=== PATIENT | female | born 1975 | race Caucasian/White ===

== ENCOUNTER 2023-07-07 08:13 | Outpatient (AMB) | payer BC, SELFPAY ==
--- NOTE | 2023-07-07 08:14 | MHC.OFFWIV ---
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 vision screening : OD 20/20 OU 20/15 OU 20/15 Patient Tobacco Use Status: Never used Tobacco Allergies No Known Allergies Allergy (Verified 07/07/23 08:16) Do you need a note to return to daycare/school/sports/work: Yes HPI HPI Comments History of Present Illness Details This is a 47-year-old female presenting for evaluation of discomfort in her left lower eyelid that started last night. Patient denies any visual changes, discharge from her left eye, light sensitivity, injury to her left eye or known retained foreign body. Patient has used Tylenol only for discomfort but notes that she has been rubbing her lower left eyelid this morning. Patient denies any systemic complaints including fevers or chills. [facility] Social History Patient Tobacco Use Status: Never used Tobacco Review of Systems Const All systems reviewed & are unremarkable except as noted in HPI and below Reports as per HPI, Denies chills and Denies fever(s) Eyes Denies change in vision, Denies diplopia, Reports irritation, Reports eye pain (discomfort left lower eyelid) and Reports requires corrective lenses ENT Reports no additional complaints Physical Exam Vital Signs: Last Vital Signs Temp 97.8 F 07/07/23 08:15 Pulse 94 07/07/23 08:15 BP 110/72 07/07/23 08:15 Pulse Ox 99 07/07/23 08:15 BMI result Body Mass Index 25.8 Const General: cooperative, healthy appearing, comfortable, no acute distress, alert and other (afebrile) Nutritional Appearance: average body habitus Orientation/consciousness: patient oriented x3 Limitations: no limitations HEENT Head: Yes normal to inspection Ears: hearing grossly normal bilaterally General nose exam: Normal external nose present Face and sinus: Yes normal facial exam Eyes Alignment and Position: alignment normal Periorbital: periorbital findings normal Eyelids: No other (erythema and edema L. lateral lower lid with internal pustule noted, tender) Conjunctivae: conjunctivae normal and other (no discharge noted from left eye, no irritation noted on examination) Sclerae: sclerae normal Pupils: Equal, round and reactive pupils present EOM: EOMs intact bilaterally Direct Ophthalmoscopy: no photophobia Neuro General: patient oriented x3 Cranial nerves: Yes Equal, round and reactive pupils present Assessment & Plan Assessment & Plan (1) Hordeolum eyelid: Code(s): H00.019 - Hordeolum externum unspecified eye, unspecified eyelid Qualifiers: Eyelid: lower Hordeolum type: internum Laterality: left Qualified Code(s): H00.025 - Hordeolum internum left lower eyelid Plan: Patient is instructed to use warm compresses 4-5 times daily and Tylenol as needed for discomfort. Coding Level of Care Code New Pt Level 3 (71870) Diagnoses Hordeolum internum of left lower eyelid H00.025 Eyelid: lower Hordeolum type: internum Laterality: left Time Spent (min) 20
[2023-07-07 08:15] VITALS: BP 110/72; PULSE 94; TEMP 36.6; O2SAT 99; BMI 25.8
== END 2023-07-07 08:59 | disposition home or self-care (01) ==
PROVIDERS: PCP Internal Medicine; Visit Provider Physician Assistant
DX: H00.025 Hordeolum internum left lower eyelid (principal)
CPT/HCPCS: 99203

== ENCOUNTER 2025-06-03 13:47 | Emergency (ER) | payer BC, SELFPAY ==
[2025-06-03 14:03] VITALS: BP 164/74; PULSE 100; RESP 18; TEMP 36.6; O2SAT 99; BMI 26.4
--- NOTE | 2025-06-03 14:03 | ED_ITS ---
HPI - General Adult General Chief complaint: Extremity Injury, Lower Stated complaint: Pt states left leg feels cold but not to the touch Time Seen by Provider: 06/03/25 14:08 Source: patient and family Mode of arrival: ambulatory Limitations: no limitations History of Present Illness ED Provider: Eden Morrissey APRN HPI narrative: 49-year-old female who has a history of pulmonary stenosis who was cleared by Cardiology and did not require any surgical intervention presents the ER with complaints of feeling like her left foot is cold for about a month. Patient reports that she initially felt that it was cold at night time when she was in bed but over the last month and has gotten more progressive and she notices it during the daytime as well. She does work at a job that requires her to be on her feet for a long period of time. She does not use any stockings at work. Denies any associated pain in the foot. No associated numbness or tingling of the foot. No known injury or trauma. She does have some mild discomfort behind her posterior left knee. She denies any associated redness or swelling. No calf pain. No recent travel. No history or family history of blood clots. Related Data Home Medications ?Medication ?Instructions ?Recorded ?Confirmed No Known Home Meds 07/07/23 07/07/23 Allergies Allergy/AdvReac Type Severity Reaction Status Date / Time No Known Allergies Allergy Verified 06/03/25 14:04 Review of Systems Review of Systems: Yes all other systems are reviewed and are negative Constitutional: Constitutional: Reports no additional constitutional complaints, Denies body ache(s), Denies chills, Denies fever(s), Denies headache(s) and Denies weakness Eyes: Eyes: Reports no additional eye complaints and Denies change in vision ENT: Reports system reviewed and no additional complaints, except as documented, Denies dizziness, Denies headache(s), Denies nasal congestion, Denies nasal discharge and Denies neck pain Cardiovascular: Cardiovascular: Reports no additional cardiovascular complaints, Denies chest pain, Denies leg edema and Denies dyspnea Respiratory: Respiratory: Reports no additional respiratory complaints, Denies cough and Denies dyspnea Gastrointestinal: Gastrointestinal: Reports no additional gastrointestinal complaints, Denies abdominal pain, Denies diarrhea, Denies nausea and Denies vomiting Genitourinary: Genitourinary: Reports no additional female genitourinary complaints and Denies urinary incontinence Musculoskeletal: Musculoskeletal: Reports no additional musculoskeletal complaints, Denies back pain, Denies arthralgias, Denies joint swelling, Denies neck pain, Denies numbness and Denies tingling Integumentary/Breasts: Skin/Breast: Reports system reviewed and no additional complaints, except as docu and Denies rash Neurologic: Reports system reviewed and no additional complaints, except as documented, Denies Abnormal speech present, Denies dizziness, Denies headache(s), Denies numbness, Denies tingling and Denies weakness [facility] Past Medical History Attestation statement: The following information was validated with the patient. Source: old records reviewed and nursing notes reviewed Social History Social History Patient Tobacco Use Status: Never used Tobacco Physical Exam ED Vital Signs: Vital Signs - 24 hr 06/03/25 14:03 Temperature 98 F Pulse Rate 100 Respiratory Rate 18 Blood Pressure 164/74 H Pulse Oximetry 99 BMI result Body Mass Index 26.4 Const General: cooperative, healthy appearing, comfortable and no acute distress Orientation/consciousness: patient oriented x3 Limitations: no limitations HENMT Head: Yes normal to inspection Ears: hearing grossly normal bilaterally General nose exam: Normal external nose present Face and sinus: Yes normal facial exam Mouth: Normal oral and palatal mucosa present Throat: Yes posterior oropharynx normal Eyes General: appearance normal, both eyes and all related structures Pupils: Equal, round and reactive pupils present Neck Neck: Yes normal visual inspection Chest Chest palpation & inspection: normal inspection of the chest Resp Effort & Inspection: normal respiratory effort Auscultation: clear to auscultation bilaterally Cardio Rate: regular rate Rhythm: regular rhythm Peripheral pulses: Peripheral pulses 2+ throughout GI Inspection: Yes normal to inspection Palpation (GI): Soft to palpation and nontender Auscultation: normal bowel sounds Back/Spine/Pelvis Thoracic/Lumbar Spine: thoracic and lumbar spine normal to inspection Skin General skin exam: no rashes or lesions noted Neuro General: patient oriented x3, no focal motor deficits and normal sensation to monofilament Cranial nerves: Yes Equal, round and reactive pupils present Cognition (Neuro): normal cognition Speech: No Abnormal speech present Gait exam (Neuro): Normal gait present Motor exam (neuro): 5/5 motor strength present throughout Extrem Other: The left foot is warm to touch. There is full active and passive range of motion. 2+ DP and PT pulses. Normal sensation. There is no calf tenderness on exam. There is no calf swelling. There is no appreciable swelling in the posterior knee or any pain on palpation. There is full active and passive range of motion. General: Yes normal to inspection Medical Decision Making Medical Decision Making MDM Narrative: 49-year-old female who has a history of pulmonary stenosis who was cleared by Cardiology and did not require any surgical intervention presents the ER with complaints of feeling like her left foot is cold for about a month. Patient reports that she initially felt that it was cold at night time when she was in bed but over the last month and has gotten more progressive and she notices it during the daytime as well. She does work at a job that requires her to be on her feet for a long period of time. She does not use any stockings at work. Denies any associated pain in the foot. No associated numbness or tingling of the foot. No known injury or trauma. She does have some mild discomfort behind her posterior left knee. She denies any associated redness or swelling. No calf pain. No recent travel. No history or family history of blood clots. The left foot is warm to touch. There is full active and passive range of motion. 2+ DP and PT pulses. Normal sensation. There is no calf tenderness on exam. There is no calf swelling. There is no appreciable swelling in the posterior knee or any pain on palpation. There is full active and passive range of motion. I do not appreciate any abnormality on exam. Wells score 0. Low suspicion for DVT. Low suspicion for ischemic limb based on clinical exam. Can not rule out a venous insufficiency but I do not feel the patient needs any emergent vascular studies. I do recommend that she use compression stockings at home. She can follow-up with her primary care doctor to determine if she needs any outpatient studies. I did review worrisome signs and symptoms with her and when to return to the emergency room. Comfortable plan for discharge home. Differential Diagnosis Differential Diagnoses: The differential diagnosis associated with the presentation includes See above Admission/Observation Consideration of admission/observation: Escalation of care including admission/observation considered See above Independent Historian Clinical information obtained from an independent historian. History obtained from or confirmed by: Other (Daughter) Tests considered The following testing was considered but not selected: See above ([place]) Discharge Plan Discharge Clinical Impression: Cold foot Patient Disposition: Home, Self-Care Instructions: Paresthesia (ED) Additional Instructions: On today's visit your blood pressure was elevated. We recommend that you repeat your blood pressure at home and keep a documentation of these numbers to show to your primary care doctor On today's exam you have good circulation of her foot. It feels warm to touch. We discussed that we do not feel that you have any signs that are concerning for a arterial or venous occlusion. We did discuss that if you are to develop pain your foot, develop a cold foot, have redness or swelling of the calf that you should return to the emergency room. In the meantime I do recommend that use compression stockings. Would also recommend he follow up outpatient with primary care doctor Prescriptions: No Action No Known Home Meds Referrals: Physician,None [Primary Care Provider, Medical] Print Language: Emirati
== END 2025-06-03 14:32 | disposition home or self-care (01) ==
LOC: HO.ED 14:17
PROVIDERS: Emergency Provider Emergency Medicine
DX: R20.8 Other disturbances of skin sensation (principal)
CPT/HCPCS: 99281; 99282